=== PATIENT | male | born 1960 | race Caucasian/White ===

== ENCOUNTER → 2024-01-22 | Outpatient (CLI) | payer BC ==
[2024-01-22 15:15] LABS: Basophils # (A) 0.04 X 10*3/uL (0.00-0.10); Basophils % (A) 0.5 %; Eosinophils # (A) 0.39 X 10*3/uL (0.04-0.35); Eosinophils % (A) 4.6 %; HCT 43.4 % (39.6-50.0); HGB 13.9 g/dL (13.0-17.0); Lymphocytes # (A) 2.29 X 10*3/uL (0.90-5.00); Lymphocytes % (A) 27.1 %; MCH 28.1 pg (27.0-32.0); MCV 87.9 FL (80.0-97.0); Mean Platelet Volume 11.1 FL (9.5-12.2); Monocytes # (A) 0.96 X 10*3/uL (0.20-1.00); Monocytes % (A) 11.4 %; NRBC Per 100 WBC 0 X 10*3/uL (0.00-0.01); Neutrophils # (A) 4.75 X 10*3/uL (1.80-7.70); Neutrophils % (A) 56.2 %; Platelet Count 315 X 10*3/uL (140-440); RBC 4.94 X 10*6/uL (4.40-5.60); RDW 13.5 % (11.5-14.5); WBC 8.45 X 10*3/uL (4.50-10.00)
[2024-01-22 15:29] LABS: BUN/Creat Ratio 13.56 Ratio (12.00-20.00); Blood Urea Nitrogen 12.2 mg/dL (9.0-27.0); Calcium 9.5 mg/dL (8.7-10.3); Carbon Dioxide 25.9 mmol/L (21.6-31.8); Chloride 104 mmol/L (96-109); Glucose 83 mg/dL (70-110); Potassium 4.6 mmol/L (3.5-5.5); Sodium 141 mmol/L (135-145)
[2024-01-22 15:45] LABS: Appearance,Urine Clear (Clear); Bilirubin,Urine Negative (Negative); Blood,Urine Negative (Negative); Color,Urine Yellow (Yellow); Ketones,Urine Negative (Negative); Nitrite,Urine Negative (Negative); Urobilinogen,Urine 0.2 E.U./DL
== END | disposition home or self-care (01) ==
LOC: LABPAT 10:10
PROVIDERS: ATTEND Urology
DX: Z01.812 Encounter for preprocedural laboratory examination (principal); C61 Malignant neoplasm of prostate
CPT/HCPCS: 80048; 81003; 85025; 86850; 86900; 86901; 87086

== ENCOUNTER → 2024-01-27 | Outpatient (CLI) | payer BC | END | disposition home or self-care (01) | LOC: LABPAT 13:40 | PROVIDERS: ATTEND Urology | DX: Z01.818 Encounter for other preprocedural examination (principal); C61 Malignant neoplasm of prostate | CPT/HCPCS: 93005 ==

== ENCOUNTER 2024-01-29 05:47 | Day surgery (SDC) | payer BC ==
--- NOTE | 2024-01-26 13:16 | P.HPIHPCON ---
History of Present Illness H&P Date: 01/26/24 Chief Complaint: Prostate cancer This is a 63-year-old male with history of [place] 7(4+3) prostate cancer. Option of radiation therapy versus prostatectomy was discussed with him in detail. He agreed to proceed with a robotic prostatectomy, aware the risk which includes but not limited to bleeding, infection, injury to nearby organs which includes but not limited to bladder, rectum. Discussed also risk of anesthesia with him. Discussed risk of erectile dysfunction and urinary incontinence. Risk of cancer recurrence and need of additional treatments and need for postoperative surveillance was discussed with him in detail. He understood all the risk and agreed to proceed with a robotic radical prostatectomy with bilateral pelvic lymph node dissection Consent for Procedure: I have explained the operation/procedure to the patient, including the risks, benefits, side effects, alternative therapies (including not receiving the proposed treatment or service), the likelihood of the patient achieving his/her goals, and potential recuperation problems for the procedure/sedation/analgesia, as well as any blood products, if indicated. I also explained to the patient the risks, benefits and side effects of the alternatives, as well as the risks related to not receiving the proposed procedure, care, treatment, or services. Past Medical History Past Medical History: Cancer, Hypertension Additional Past Medical History / Comment(s): recent dx prostate cancer, seasonal allergies. History of Any Multi-Drug Resistant Organisms: None Reported Additional Past Surgical History / Comment(s): prostate bx. colonoscopy Past Anesthesia/Blood Transfusion Reactions: No Reported Reaction Smoking Status: Never smoker - Past Family History Mother Family Medical History: AFIB, Cancer Additional Family Medical History / Comment(s): breast cancer Father Additional Family Medical History / Comment(s): non hodgkin lymphoma- Medications and Allergies Home Medications Medication Instructions Recorded Confirmed Type Azelastine HCl [Astepro] 1 spray NASAL BID 01/26/24 01/26/24 History Loratadine [Claritin] 10 mg PO DAILY 01/26/24 01/26/24 History Montelukast [Singulair] 10 mg PO DAILY 01/26/24 01/26/24 History lisinopriL [Lisinopril] 40 mg PO DAILY 01/26/24 01/26/24 History Allergies Allergy/AdvReac Type Severity Reaction Status Date / Time No Known Allergies Allergy Verified 01/26/24 12:01 Surgical - Exam - General no distress, no pain - Eyes normal ocular movement, no pale - ENT normal nares, normal mucosa - Respiratory normal expansion, normal respiratory effort - Abdomen Abdomen: soft, non tender, no distended Assessment and Plan Assessment: OR for robotic radical prostatectomy with bilateral pelvic lymph node dissection
[2024-01-29] MEDS: ONDANSETRON 4 MG/2 ML VIAL IVP ONE ×2 (06:30→13:11)
[2024-01-29] MEDS: DEXAMETHASONE SOD PHOSPHATE 4 MG/ML 1 ML VIAL IVP ONE (06:30)
[2024-01-29] MEDS ORDERED: HYDROmorphone 0.5 MG/0.5 ML SYRINGE IVP PRN (07:00)
[2024-01-29] MEDS: MIDAZOLAM 2 MG/2 ML VIAL IVP ONE (07:00)
[2024-01-29] MEDS ORDERED: MIDAZOLAM 2 MG/2 ML VIAL IV PRN (07:00)
[2024-01-29] MEDS: LACTATED RINGERS 1,000 ML IV ONE ×3 (07:20→09:52)
[2024-01-29] MEDS ORDERED: MIDAZOLAM 2 MG/2 ML VIAL ONE (07:21)
[2024-01-29] MEDS ORDERED: LIDOCAINE 1% INJ 10MG/ML (20 ML MDV) ONE (07:21)
[2024-01-29] MEDS ORDERED: DEXAMETHASONE SOD PHOSPHATE 4 MG/ML 1 ML VIAL ONE (07:21)
[2024-01-29] MEDS ORDERED: KETOROLAC 30 MG/ML 1 ML VIAL ONE (07:21)
[2024-01-29] MEDS ORDERED: HYDROmorphone (PF) 1 MG/ML ONE (07:21)
[2024-01-29] MEDS ORDERED: HEPARIN SODIUM,PORCINE 5,000 UNIT/ML 1 ML VIAL ONE (07:21)
[2024-01-29] MEDS ORDERED: GLYCOPYRROLATE 0.2 MG/ML 2 ML VIAL ONE (07:21)
[2024-01-29] MEDS ORDERED: SUCCINYLCHOLINE CHLORIDE 200 MG/10 ML VIAL IV ONE (07:21)
[2024-01-29] MEDS ORDERED: hydrALAZINE HCL 20 MG/ML 1 ML VIAL ONE (07:21)
[2024-01-29] MEDS ORDERED: fentaNYL (PF) 50 MCG/ML 2 ML AMP ONE (07:21)
[2024-01-29] MEDS ORDERED: ROCURONIUM 10 MG/ML (5 ML VIAL) IV ONE (07:21)
[2024-01-29] MEDS ORDERED: SODIUM CHLORIDE 0.9% (PF) 10 ML VIAL ONE (07:21)
[2024-01-29] MEDS ORDERED: ROPIVACAINE 5 MG/ML 30 ML VIAL ONE (07:21)
[2024-01-29] MEDS ORDERED: NEOSTIGMINE 1 MG/ML 10 ML VIAL ONE (07:21)
[2024-01-29] MEDS ORDERED: PROPOFOL 10 MG/ML 20 ML VIAL IV ONE (07:21)
[2024-01-29] MEDS: BUPIVACAINE (PF) 0.25% 30 ML VIAL SQ ONE (07:26)
--- NOTE | 2024-01-29 08:38 | P.ANPRN ---
Procedure Note - Anesthesia - Nerve Block Performed Bilateral Erector Spinae Single Time Out Performed: Yes Date of Procedure: 01/29/24 Procedure Start Time: 06:59 Procedure Stop Time: 07:06 Location of Patient: PreOp Indication: Acute Post-Operative Pain, Requested by Surgeon Sedation Type: Sedate with meaningful contact maintained Preparation: Sterile Prep Position: Prone Needle Types: Pajunk Needle Gauge: 21 Ultrasound used to visualize needle placement: Yes Ultrasound used to observe medication spread: Yes Blood Aspirated: No Pain Paresthesia on Injection Noted: No Resistance on Injection: Normal Image Stored and Saved: Yes Events: Uneventful and Well Tolerated (Ropivacaine 0.5% 15 cc plus normal saline 10 cc plus dexamethasone 4 mg given bilaterally at L1)
--- NOTE | 2024-01-29 12:04 | P.OP ---
Date of Procedure: 01/29/24 Preoperative Diagnosis: Prostate cancer Postoperative Diagnosis: Same Procedure(s) Performed: Robotic assisted laparoscopic radical prostatectomy with bilateral pelvic lymph node dissection Anesthesia: GLORY Surgeon: Yordy Larose Estimated Blood Loss (ml): 200 Pathology: other (Prostate, bilateral seminal vesicles, bilateral pelvic lymph nodes) Condition: stable Disposition: PACU Indications for Procedure: This is a 63-year-old male with history of [place] 7(4+3) prostate cancer. Option of radiation therapy versus prostatectomy was discussed with him in detail. He agreed to proceed with a robotic prostatectomy, aware the risk which includes but not limited to bleeding, infection, injury to nearby organs which includes but not limited to bladder, rectum. Discussed also risk of anesthesia with him. Discussed risk of erectile dysfunction and urinary incontinence. Ri sk of cancer recurrence and need of additional treatments and need for postoperative surveillance was discussed with him in detail. He understood all the risk and agreed to proceed with a robotic radical prostatectomy with bilateral pelvic lymph node dissection Description of Procedure: After preoperative antibiotics were started, the patient was taken to the operating room. Anesthesia was induced and the patient was placed in a supine position, with adequate padding of the pressure points, shoulders, back, legs and arms. He was then prepped and draped in the standard fashion. A critical pause was performed using two patient identifiers. A 16F boone catheter was placed to gravity drainage. A pneumo-peritoneum was created with placement of a Veress needle to 20 mm Hg without complication, and a 8 Fr trocar was placed above the umbillicus. Under direct vision a 8mm robotic ports was placed lateral to each rectus slightly below the camera port. The left iliac fossa 8mm port was placed. The right group fitness assistant department head right iliac fossa 12mm port and right paramedian 5mm portwere placed. After the patient was placed in the trendelenberg position, the robot was then docked to the 8mm robotic ports and then each robotic arm and tower was checked in relation to the patient's legs and hands to avoid inadvertent compression. The peritoneal cavity was inspected. An inverted U-shaped incision began laterally to the left medial umbilical ligament and extended high across the midline to the right umbilical ligament. The limbs of the "U" extended to the level of the vasa on both sides. We next developed the preperitoneal space and the space of Retzius. Cautery was used to dissected the bladder away from the prostate. After the anterior bladder neck was incised and the bladder entered the the posterior bladder neck was exposed and the ureteral orifces identified. patient did have significant median lobe. The posterior bladder neck was then incised and diss ected away from the prostate. The vas and the seminal vesicles were now exposed and dissected to their insertions into the prostate and were not spared. The posterior layer of the Denonvillier's fascia was incised to enter yesenia the plane between prostate and perirectal fat. Each lateral pedicle was controlled with clips and cautery for hemostasis. Nerve preservation was performed wide nerve sparing was performed on the right and standard was performed on the left. The puboprostatic ligament was incised where it inserted into the apex of the prostate and a plane between urethra and dorsal venous complex developed to expose the anterior urethral surface. The anterior wall of the urethra was transected with the cut setting a few millimeters distal to the apex of the prostate. The dorsal vein was ligated using 3-0 V lock bilateral obturator and external iliac lymph node packets were carefully dissected after careful visualization of the hypogastric artery and obturator nerve. There was careful attention paid to hemostasis with judicious use of cautery. The urethrovesical anastomosis was performed . the posterior denovillers was reapproximated using 3-0 V lock. A9 and 6 inch 3-0 V-Lock suture was used to anastomose the urethra and bladder, starting at the 6:00 posterior position. Mucosa was secured in every stitch, to ensure a mucosa to mucosa anastomosis. The stitch was regularly cinched and the anastomosis tightened. Care was taken to not violate the ureteral orifices. The Boone catheter was advanced, the bladder filled, and the anastomosis was tested, as described above. Anastomsis was watertight at 200 mL This point the robot was undocked. The incision was extended along the midline at the level of the robotic trocar. Next the specimen was removed and sent to pathology. Patient had an umbilical hernia which was repaired, the edges of the fascia was dissected and mobalized, The hernia sac was excised,. next the the periumbilical fascia was closed with 1-0-PDS suture in figure of eight fashion. All ports were closed with a subcuticular 4-0 monocryl and Dermabond. Sponge, instrument, and needle counts were correct at the end of the case x2. All specimens including prostate and lymph nodes were sent to pathology for diagnosis and will be available in a week. The patient tolerated the surgery well and without complication. He awoke without difficulty and was taken to the recovery room in stable condition
[2024-01-29] MEDS: LACTATED RINGERS 1,000 ML IV SCH (13:11)
[2024-01-29] MEDS: DEXAMETHASONE SOD PHOSPHATE 4 MG/ML 1 ML VIAL IV ONE (13:11)
[2024-01-29] MEDS: AZELASTINE 137MCG/SPRAY NASAL SCH (13:12)
[2024-01-29] MEDS: SCOPOLAMINE 1 MG/72 HR PATCH TRANSDERM ONE (13:12)
[2024-01-29] MEDS: lisinopriL 20 MG TAB PO SCH (13:12)
[2024-01-29] MEDS: MONTELUKAST 10 MG TAB PO SCH (13:13)
[2024-01-29] MEDS: KETOROLAC 15 MG/ML 1 ML VIAL IVP SCH (13:13)
[2024-01-29] MEDS: LORATADINE 10 MG TAB PO SCH (13:13)
[2024-01-29] MEDS: HYDROmorphone 1 MG/ML 1 ML SYRINGE IVP PRN (13:38)
[2024-01-29] MEDS: ONDANSETRON 4 MG/2 ML VIAL IVP PRN (13:42)
[2024-01-29 16:38] LABS: Glucose,Whole Blood 128 mg/dL (70-110)
[2024-01-29] MEDS: D5-0.45% NACL WITH KCL 20MEQ/L 1,000 ML IV SCH (17:16)
[2024-01-30 08:24] VITALS: BP 117/74; PULSE 66; RESP 16; TEMP 98.2
--- NOTE | 2024-01-30 10:31 | P.DS ---
Providers Date of admission: The patient was prepped and draped sterilely. He is dilated with [place] sounds from 10-18 Bh[place]anese. I attempted to then pass a 12 and 10 Bh[place] Boone catheter but met resistance. I then passed a 5 [place] spiral filiform and dilate to 18 [place] with followers. I still cannot pass the catheter. I thus reintroduced the follower, 18 [place] to dilate the urethra. I replaced the catheter later time. There is not a lot of urine coming from the bladder it is clear. Attending physician: Yordy Larose MD Primary care physician: Kishan Casillas Plan - Discharge Summary Discharge Rx Participant: No New Discharge Prescriptions: No Action Azelastine HCl [Astepro] 1 spray NASAL BID lisinopriL [Lisinopril] 40 mg PO DAILY Montelukast [Singulair] 10 mg PO DAILY Loratadine [Claritin] 10 mg PO DAILY Discharge Medication List Azelastine HCl [Astepro] 1 spray NASAL BID 01/26/24 [History] Loratadine [Claritin] 10 mg PO DAILY 01/26/24 [History] Montelukast [Singulair] 10 mg PO DAILY 01/26/24 [History] lisinopriL [Lisinopril] 40 mg PO DAILY 01/26/24 [History] Follow up Appointment(s)/Referral(s): Yordy Larose MD [STAFF PHYSICIAN] - 02/15/24 (home with boone , leg and bed bag. tylenol or motrin for pain)
== END 2024-01-30 12:02 | disposition home or self-care (01) ==
LOC: OR 05:47 → 4SSUR 12:11 → OR 01-30 12:02
PROVIDERS: ATTEND Urology
DX: C61 Malignant neoplasm of prostate (principal); I10 Essential (primary) hypertension; G89.18 Other acute postprocedural pain; Z79.899 Other long term (current) drug therapy
CPT/HCPCS: 38571; 55866; S2900; 64999; 88307; 88309